=== PATIENT | female | born 1955 | race African-American/Black ===

== ENCOUNTER 2022-02-19 19:03 | Emergency (ER) | payer MEDICARE, MEDICAID ==
[~2022-02-19] VITALS: Ht 172.7 cm; Wt 81.0 kg
[2022-02-19] MEDS ORDERED: HYDROCODONE/ACETAMINOPHEN 10/325MG TABLET PO ONE (23:15)
[2022-02-20] MEDS ORDERED: IBUP-2029 MT (01:02)
[2022-02-20] MEDS ORDERED: LIDO700A30 TP (01:02)
[2022-02-20 01:25] VITALS: BP 128/70
== END 2022-02-20 01:31 | disposition home or self-care (01) ==
LOC: ER 19:03
DX: S70.12XA Contusion of left thigh, initial encounter (principal); V49.49XA Driver injured in collision with other motor vehicles in traffic accident, initial encounter; Y93.89 Activity, other specified; Y92.89 Other specified places as the place of occurrence of the external cause; Y99.8 Other external cause status; M25.552 Pain in left hip
CPT/HCPCS: 72170; 73552; 99284

== ENCOUNTER 2022-10-21 14:16 | Emergency (ER) | payer MEDICARE, MEDICAID ==
[~2022-10-21] VITALS: Ht 157.5 cm; Wt 72.0 kg
[~2022-10-21 14:16] MED LIST: IBUP-2029 MT; LIDO700A30 TP
[2022-10-21 15:10] LABS: MEAN CORPUSCULAR HEMOGLOBIN 13.1 pg (28.0-32.0); MEAN CORPUSCULAR VOLUME 50.3 fL (81.0-99.0); MEAN PLATELET VOLUME 8.6 fl (7.4-10.4); PLATELET 225 x1000/uL (130-400); RED BLOOD CELL COUNT 4.35 mill/uL (4.2-5.4); RED CELL DISTRIBUTION WIDTH 20.3 % (11.6-14.6)
[2022-10-21 15:16] LABS: CHLORIDE 110 mEq/L (98-107)
[2022-10-21 15:37] LABS: HEMOGLOBIN. 5.7 g/dL (12.0-16.0)
[2022-10-21 15:38] LABS: HEMATOCRIT. 21.9 % (36.0-48.0)
[2022-10-21 16:24] VITALS: BP 130/61
[2022-10-21 16:26] LABS: CLARITY URINE CLEAR (CLEAR); COLOR URINE DARK YELLOW (YELLOW); KETONES URINE TRACE (NEGATIVE); LEUKOCYTE ESTERASE URINE 1+ (NEGATIVE); NITRITE URINE NEGATIVE (NEGATIVE); OCCULT BLOOD URINE NEGATIVE (NEGATIVE); PH URINE 5.5 (4.5-8.0); PROTEIN URINE 1+ (NEGATIVE); SPECIFIC GRAVITY URINE 1.028 (1.005-1.030)
[2022-10-21 21:30] LABS: PLATELET ESTIMATE NORMAL
== END 2022-10-21 16:43 | disposition left against medical advice (07) ==
LOC: ER 14:16
DX: D64.9 Anemia, unspecified (principal); Z88.0 Allergy status to penicillin; Z79.899 Other long term (current) drug therapy
CPT/HCPCS: 36415; 80053; 81003; 85025; 86850; 86900; 93005; 99284